=== PATIENT | female | born 2005 | race Caucasian/White ===

== ENCOUNTER 2024-10-18 21:06 | Emergency (ER) | payer OTHER, SELFPAY ==
[2024-10-18 21:07] VITALS: BP 136/87; PULSE 86; RESP 16; TEMP 36.9; O2SAT 100; BMI 25.1
[2024-10-18] MEDS: ALBUTEROL INHALER 2 PUFF IH (22:43)
--- NOTE | 2024-10-18 22:43 | ED.SOB ---
HPI - SOB/Dyspnea General Date Seen: 10/18/24 Chief Complaint: Shortness of Breath/Dyspnea Stated Complaint: Asthma attack Time Seen by Provider: 10/18/24 22:05 Source: patient and family Mode of arrival: ambulatory Limitations: no limitations History of Present Illness HPI Narrative: Patient is the 19-year-old female who was home in town on her break. She reports that she is somewhat short of breath, with activities moving around she thinks she may have asthma. Her other of now presented to the emergency room, she gives a history of shortness of breath, when she is moving around almost that she is wheezing. 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 She feels over the past month that she has increased shortness of breath and actually increased over the past week or so as she has been around pets when she is traveling. She normally gets allergies that are more eyes and nose watering, but feels this is more breath associated. She did have a history of somewhat asthma as a youth, did use a puffer but that was many years ago and does not have any available now. Denies a significant cough, chest pain, leg swelling, this does not come on acutely. Related Data Home Medications ?Medication ?Instructions ?Recorded ?Confirmed No Known Home Medications 10/18/24 10/18/24 Allergies Allergy/AdvReac Type Severity Reaction Status Date / Time No Known Drug Allergies Allergy Verified 10/18/24 21:13 PFSH PFS Social History Smoking Status: Never smoker Do you use any of these nicotine containing products: None How often do you have a drink containing alcohol: monthly or less How often do you have six or more drinks on one occasion: Never AUDIT-C Alcohol total score: 1 Non-prescribed substance use: denies use Exam Const: Vital Signs, click to edit/add: Vital Signs - 24 hr 10/18/24 21:07 Temperature 98.5 F Pulse Rate [Pulse Oximeter] 86 Respiratory Rate 16 Blood Pressure [Ri ght Upper Arm] 136/87 Pulse Oximetry 100 Oxygen Delivery Me thod Room Air Course Course ED Course: Patient initially blew an average of 300 on the peak flow, post use of albuterol she was 350-400, I think it would be reasonable use some prednisone to give her some improvement of her breathing, given the fact she is a [employer] de[employer], use albuterol and then follow-up with primary care for of better asthma plan, we talked about worsening signs and symptoms, use of the peak, and when to re present. Vital Signs Vital signs: Initial Vital Signs Temperature 98.5 F 10/18/24 21:07 Temperature Source Temporal Artery Scan 10/18/24 21:07 Pulse Rate 86 10/18/24 21:07 Respiratory Rate 16 10/18/24 21:07 Blood Pressure 136/87 10/18/24 21:07 Blood Pressure Mean 103 10/18/24 21:07 Blood Pressure Position Sitting 10/18/24 21:07 Pulse Oximetry 100 10/18/24 21:07 Oxygen Delivery Method Room Air 10/18/24 21:07 Vital Signs Temperature 98.5 F 10/18/24 21:07 Pulse Rate 86 10/18/24 21:07 Respiratory Rate 16 10/18/24 21:07 Blood Pressure 136/87 10/18/24 21:07 Pulse Oximetry 100 10/18/24 21:07 Oxygen Delivery Method Room Air 10/18/24 21:07 Temperature 98.5 F 10/18/24 21:07 Pulse Rate 86 10/18/24 21:07 Respiratory Rate 16 10/18/24 21:07 Blood Pressure 136/87 10/18/24 21:07 Pulse Oximetry 100 10/18/24 21:07 Oxygen Delivery Method Room Air 10/18/24 21:07 Medications Administered Medications: Discontinued Medications Generic Name Dose Route Start Last Admin Trade Name Freq PRN Reason Stop Dose Admin Albuterol 2 puff 10/18/24 22:24 10/18/24 22:43 Albuterol Inhaler IH 10/18/24 22:25 2 puff ONCE ONE Administration MDM - SOB/Dyspnea MDM Narrative Medical decision making narrative: Life-threatening differential diagnosis includes occluded COPD exacerbation, pulmonary edema, acute coronary syndromes, pulmonary embolism, pneumonia, and pneumothorax. Other differential diagnosis considerations include asthma, bronchitis as well as other etiologies Differential Diagnosis Differential diagnosis: Likely acute exacerbation of chronic obstructive airways disease, community acquired pneumonia, asthma with exacerbation and pulmonary embolism Medical Records Attestation: I reviewed the patient's medical records. Discharge Plan Discharge Clinical Impression: Asthma with acute exacerbation, Expiratory wheezing Patient Disposition: Home w/ Parent or Adult Condition: Improved Instructions: Asthma (ED), Asthma (DC), How to Use a Peak Flow Meter (ED), How to Use a Metered-Dose Inhaler (DC) Additional Instructions: Home rest use of prednisone, also use of the meter dose inhaler as needed 2 puffs q.i.d. p.r.n., follow-up with primary care within the next 5 days return here if increasing shortness of breath or other issues her. Prednisone, 20 mg p.o. b.i.d. for 5 days via [employer] Activity Level: Light activity Prescriptions: No Action No Known Home Medications Follow Up/Referrals: Ellen Forbes DO [Primary Care Provider] - Stand Alone [facility] Inst[facility]
[2024-10-18 23:07] VITALS: BP 125/74; PULSE 80; RESP 16; TEMP 36.9; O2SAT 100
[2024-10-18 23:35] VITALS: BP 125/74; PULSE 80; RESP 16; TEMP 36.9
== END 2024-10-18 23:36 | disposition home or self-care (01) ==
PROVIDERS: Emergency Provider Family Medicine; PCP Family Medicine
DX: J45.901 Unspecified asthma with (acute) exacerbation (principal)
CPT/HCPCS: 99284; A9270